=== PATIENT | male | born 1965 | race Caucasian/White ===

== ENCOUNTER → 2017-11-21 | Outpatient (CLI) | payer OTHER ==
--- NOTE | 2017-11-21 15:16 | RAD ---
Left foot, 3 views, 11/21/2017: History: Foot pain No fracture or destructive bony lesion is seen. There is only minimal arthritic change at the first MTP joint and at the talonavicular articulation. A small inferior calcaneal spur is noted. Mild subcutaneous edema is present. IMPRESSION: No acute bony abnormality is detected.
== END | disposition home or self-care (01) ==
LOC: PMG 14:00
PROVIDERS: ATTEND Physician Assistant Medical
DX: M77.31 Calcaneal spur, right foot (principal); M19.072 Primary osteoarthritis, left ankle and foot
CPT/HCPCS: 73630

== ENCOUNTER → 2018-05-05 | Outpatient (CLI) | payer OTHER ==
--- NOTE | 2018-05-05 15:52 | RAD ---
2 view right hip study Clinical indications: Right hip pain. FINDINGS: No acute fracture or dislocation or osteolytic process or significant arthritic change is seen. IMPRESSION: No significant osseous abnormality. Five-view lumbar spine series Clinical indications: Back pain with radiculopathy extending into the right lower extremity. FINDINGS: The transverse processes are intact. No spondylolysis is seen. No anterolisthesis is seen. No compression fracture or discitis or osteolytic process is evident. There is severe degenerative disc space narrowing and prominent degenerative endplate spurring at L3-4 and L4-5. Moderate degenerative disc space narrowing and mild degenerative endplate spurring is seen at L5-S1. Mild degenerative endplate spurring and mild disc space narrowing is seen at L2-3. Degenerative facet arthropathy is seen at L3-4 and L4-5 and L5-S1. IMPRESSION: Degenerative lumbar spondylosis. No acute compression fracture is evident. Electronically signed by: Tushar Judd MD (05/05/2018 3:48 PM) [id number]
== END | disposition home or self-care (01) ==
LOC: DXRAD 07:58
PROVIDERS: ATTEND Physician Assistant
DX: M47.896 Other spondylosis, lumbar region (principal); M48.061 Spinal stenosis, lumbar region without neurogenic claudication; M51.36 Other intervertebral disc degeneration, lumbar region; M12.88 Other specific arthropathies, not elsewhere classified, other specified site
CPT/HCPCS: 72110; 73502